=== PATIENT | female | born 1950 | race Caucasian/White ===

== ENCOUNTER 2020-03-22 12:04 | Day surgery (SDC) | payer MEDICARE, OTHER ==
[~2020-03-22] VITALS: Ht 167.6 cm; Wt 105.0 kg
--- NOTE | ~2020-03-22 | OR ---
[facility] [address] [facility] [place] [address] Draft DATE OF OPERATION: 03/22/2020 SURGEON: Rodney Stone MD DATE OF PROCEDURE: 03/22/2020 PREOPERATIVE DIAGNOSES: 1. 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 2. Diarrhea. POSTOPERATIVE DIAGNOSES: Mild cecal inflammation Rectosigmoid and remaining colon normal. PROCEDURE: Total colonoscopy to cecum with biopsy of cecum. ANESTHESIA: Intravenous sedation, fentanyl 100 mcg, Versed 5 mg. INDICATION: This 69-year-old white woman is a patient of KIM Layne and referred for consideration of diarrhea. She has no associated rectal bleeding. The patient has undergone treatment of anal carcinoma with apparent cure by chemotherapy and radiation therapy performed in 2006. She has diarrhea alternating with constipation in fact. She has had no blood per rectum. She is admitted to undergo colonoscopy to better characterize this problem. Additionally, the patient has no family history of inflammatory bowel disease or colon cancer. FINDINGS: The prep was excellent. Complete colonoscopy was undertaken to the cecum. There was mild inflammation of the cecum, but no ulceration proper. The anorectum and rectum itself showed no sign of inflammation or other problem and no sign of obvious radiation enteritis there. There was no sign of polyp or diverticular formation. DESCRIPTION OF PROCEDURE: The patient was brought to the endoscopy suite and placed in lateral decubitus position, given intravenous sedation to the point of slurred speech and nystagmus. Digital rectal examination was normal. PATIENT NAME: CORIN TESFAYE OPERATIVE REPORT DATE OF : 50 REPORT #: [id number] PHYSICIAN: RODNEY STONE MD PCP: ALBINA WYATT REPORT IS CONFIDENTIAL AND NOT TO BE RELEASED WITHOUT AUTHORIZATION [facility] [address] [place] [id number] Draft Olympus video colonoscope was passed in the rectum and manipulated throughout the colon ultimately intubating the cecum. The ileocecal valve and appendiceal orifice were normal. There was mild inflammation of the cecum and biopsies were obtained. The scope was then carefully withdrawn. Examination throughout showed no sign of polyps, diverticular formation, colitis, or cancer. Retroflex view was normal. Scope was removed and the patient was taken to the recovery room in good condition. CONCLUDING DIAGNOSIS: Mild possibly accounting for symptoms. PLAN: We will initiate [employer]ru[employer] one scoop p.o. daily. We will see the patient back in the office in 4 to 6 weeks. Review pathology reports and her symptoms. MD NICOLE Chris/MARI /[id number] cc: KIM Layne Copies: ALBINA WYATT ~ PATIENT NAME: CORIN TESFAYE OPERATIVE REPORT DATE OF : 50 REPORT #: [id number] PHYSICIAN: RODNEY STONE MD PCP: ALBINA WYATT REPORT IS CONFIDENTIAL AND NOT TO BE RELEASED WITHOUT AUTHORIZATION
[~2020-03-22 12:04] MED LIST: ACYCLOVIR200 MG PO; CELEXA20 MG PO; CIPRO500 MG PO
--- NOTE | 2020-03-22 13:49 | NUR ---
03/22/20 1349 Ebony Caro 1341- PT ARRIVES TO PACU AROUSABLE TO VOICE, PT DROWSY AND KEEPS HER EYES CLOSED WHILE ANSWERING QUESTIONS. RESP EVEN AND UNLABORED. OXYGEN SAT HIGH 90'S TO 100% ON 3L VIA NC. 1347- PT PASSING FLATUS. 1349- OXYGEN TITRATED OFF.
--- NOTE | 2020-03-23 14:16 | PATH ---
[facility] [address] [place], [place] [address] Signed SPECIMEN(S): A CECUM SPECIMEN SOURCE: A. CECUM CLINICAL HISTORY: Colonoscopy. History of polyps, anal cancer/mild cecal inflammation. MICROSCOPIC DESCRIPTION: Histologic sections of all submitted blocks are examined by light microscopy. These findings, together with the gross examination, support the pathologic diagnosis. FINAL PATHOLOGIC DIAGNOSIS: Cecum, biopsy: - Benign colonic mucosa with focal slight mucosal chronic inflammation (non-specific). JVR:[facility]:C2NR GROSS DESCRIPTION: The specimen, labeled "JF, cecum biopsy," is received in formalin and consists of two mejia soft tissue fragments that measure 0.2 cm in greatest dimension. The specimen is entirely submitted in cassette (A1). JS (under the direct supervision of a pathologist) The Gross Description was prepared using a voice recognition system. The report was reviewed for accuracy; however, sound-alike word errors, addition and/or deletions may occur. If there is any question about this report, please contact Client Services. PERFORMING LABORATORY: The technical component was performed by [facility], [address] [place] [address] (Tube Backer: Randa Koenig MD; CLIA# [id number]). Professional [place] [address] (Tube Backer: Jose Rodgers M.D.). Diagnostician: Jose Rodgers MD Pathologist Electronically Signed 03/23/2020 PATIENT NAME: CORIN TESFAYE PATHOLOGY DATE OF : 50 REPORT #: [id number] PHYSICIAN: ABDOULAYE PATHOLOGY PCP: ALBINA WYATT REPORT IS CONFIDENTIAL AND NOT TO BE RELEASED WITHOUT AUTHORIZATION [address] [address] Signed Copies: ~ PATIENT NAME: CORIN TESFAYE PATHOLOGY DATE OF : 50 REPORT #: [id number] PHYSICIAN: ABDOULAYE PATHOLOGY PCP: ALBINA WYATT REPORT IS CONFIDENTIAL AND NOT TO BE RELEASED WITHOUT AUTHORIZATION
== END 2020-03-22 14:25 | disposition home or self-care (01) ==
LOC: OPS 12:04 → DS 12:04 → OPS 13:00
PROVIDERS: ATTEND Surgery
PROC: 0DBH8ZX Excision of Cecum, Via Natural or Artificial Opening Endoscopic, Diagnostic (ICD-10-PCS; principal; 2020-03-22 13:00)
DX: K52.9 Noninfective gastroenteritis and colitis, unspecified (principal); G35 Multiple sclerosis; Z85.048 Personal history of other malignant neoplasm of rectum, rectosigmoid junction, and anus; Z79.899 Other long term (current) drug therapy
CPT/HCPCS: 99153; G0500; J2250; J3010